=== PATIENT | male | born 1980 | race Caucasian/White ===

== ENCOUNTER 2023-02-11 15:27 | Inpatient (IN) | payer OTHER ==
[~2023-02-11 15:27] MED LIST: Iopamidol-370 76% 500 ML MDV (1 ML CHARGE) ONE
[2023-02-11] MEDS ORDERED: Ondansetron PF 4 MG/2 ML Vial ONE ×2 (15:51→18:08)
[2023-02-11] MEDS ORDERED: Piperacillin/Tazobactam 3.375 GM VIAL ONE (16:21)
[2023-02-11 16:24] LABS: #Basophils 0.1 thou/uL (0.0-0.2); #Eosinphils 0.2 thou/uL (0.0-0.7); #Lymphocytes 2.6 thou/uL (1.20-3.40); #Monocytes 1.6 thou/uL (0.11-0.59); #Neutrophils 13.6 thou/uL (1.40-6.50); %Basophils 0.5 % (0.0-1.0); %Eosinophils 1.1 % (0.0-10.0); %Lymphocytes 14.2 % (21.0-51.0); %Monocytes 8.9 % (0.0-10.0); %Neutrophils 75.3 % (42.0-75.0); Mean Corpuscular HGB CONC 32.7 g/dL (32.0-36.0); Mean Corpuscular Hemoglobin 29.5 pg (27.0-31.0); Platelet Count 712 10x3/uL (130-400); RBC Distribution Width 11.7 % (11.5-14.5); Red Blood Cell (RBC) Count 5.44 mill/uL (4.70-6.10)
[2023-02-11 16:48] LABS: ALT (SGPT) 25 U/L (8-55); AST (SGOT) 21 U/L (5-34); Albumin 3.7 g/dL (3.5-5.0); Alkaline Phosphatase 90 U/L (40-110); Anion Gap 22 mmol/L (10-20); BUN (Urea Nitrogen) 17 mg/dL (8.9-20.6); Calc. Creatinine Clearance 0 mL/min (70-130); Calcium 10.2 mg/dL (7.8-10.44); Carbon Dioxide 34 mmol/L (22-29); Chloride 82 mmol/L (98-107); Estimated GFR 77; Globulin 4.3 g/dL (2.4-3.5); Glucose 135 mg/dL (70-105); Lipase 35 U/L (8-78); Sodium 135 mmol/L (136-145)
[2023-02-11 16:49] LABS: Acetaminophen Less than 10.0 mcg/mL (10.0-30.0); Alcohol Less than 10 mg/dL (Less than 10); CK (CPK) 30 U/L (30-200); Salicylate Less than 8.0 mg/dL (15.0-30.0)
[2023-02-11] MEDS ORDERED: Benzocaine 20% Spray 60 ML CAN ONE (17:37)
[2023-02-11 18:33] LABS: Bilirubin Negative (Negative); Blood, Urine Negative (Negative); Glucose, Urine (Dipstick) Normal (Negative); Ketone, Urine 10 mg/dL (Negative); Leukocyte Negative Leu/uL (Negative); Nitrite Negative (Negative); Protein, Urine (Dipstick) 10 mg/dL (Neg-Trace); Specific Gravity, Urine 1.013 (1.002-1.036); Urobilinogen Normal mg/dL (Less than 2)
[2023-02-11 18:34] LABS: Clarity Hazy (Clear)
[2023-02-11 18:48] LABS: Amphetamine Not Detected (NotDetected); Barbiturates Screen Not Detected (NotDetected); Benzodiazepine Screen Not Detected (NotDetected); Cocaine Metabolite Screen Not Detected (NotDetected); Methadone Not Detected (NotDetected); Methamphetamine Not Detected (NotDetected); Opiate Screen Not Detected (NotDetected); Oxycodone Screen Not Detected (NotDetected); Phencyclidine (PCP) Not Detected (NotDetected); THC/Cannabinoid Screen Detected (NotDetected); Tricyclic Screen Detected (NotDetected)
[2023-02-11] MEDS ORDERED: Ondansetron PF 4 MG/2 ML Vial IVP PRN (19:29)
[2023-02-11] MEDS ORDERED: HYDROcodone/Acetaminophen 5/325 mg Tablet PO PRN (19:29)
[2023-02-11] MEDS ORDERED: Acetaminophen 325 MG TAB PO PRN (19:29)
[2023-02-11 19:34] LABS: Lactic Acid 1.4 mmol/L (0.5-2.2)
[2023-02-11] MEDS ORDERED: fentaNYL 50 mcg/mL 1 mL Vial ONE (20:10)
[2023-02-11] MEDS: Piperacillin/Tazobactam 3.375 GM in Sodium Chloride 0.9% 100 ML IVPB SCH (21:42)
[2023-02-11] MEDS: Famotidine/PF 20 mg/2ml Vial SLOW IVP SCH (21:42)
[2023-02-11] MEDS: Sodium Chloride 0.9% 1,000 ML IV SCH (21:43)
[2023-02-11] MEDS: Amitriptyline HCl 25 MG TAB PO SCH (21:51)
[2023-02-11 22:25] VITALS: BMI 22.6
[2023-02-12] MEDS: Sodium Chloride 0.9% 1,000 ML IV SCH ×3 (03:53→18:12)
[2023-02-12] MEDS: Piperacillin/Tazobactam 3.375 GM in Sodium Chloride 0.9% 100 ML IVPB SCH ×3 (03:53→22:45)
[2023-02-12 06:45] LABS: #Eosinphils 0.4 thou/uL (0.0-0.7); #Lymphocytes 2.4 thou/uL (1.20-3.40); #Monocytes 1.3 thou/uL (0.11-0.59); #Neutrophils 9.5 thou/uL (1.40-6.50); %Basophils 0.3 % (0.0-1.0); %Eosinophils 3.2 % (0.0-10.0); %Lymphocytes 17.8 % (21.0-51.0); %Monocytes 9.1 % (0.0-10.0); %Neutrophils 69.6 % (42.0-75.0); Hemoglobin 14.1 g/dL (14.0-18.0); Mean Corpuscular HGB CONC 32.6 g/dL (32.0-36.0); Mean Corpuscular Hemoglobin 29.7 pg (27.0-31.0); Mean Corpuscular Volume 91.1 fl (78.0-98.0); Mean Platelet Volume 6.9 fL (7.4-10.4); Platelet Count 625 10x3/uL (130-400); RBC Distribution Width 11.6 % (11.5-14.5); Red Blood Cell (RBC) Count 4.74 mill/uL (4.70-6.10); White Blood Cell (WBC) Count 13.7 10x3/uL (4.8-10.8)
[2023-02-12 07:02] LABS: Anion Gap 13 mmol/L (10-20); BUN (Urea Nitrogen) 15 mg/dL (8.9-20.6); Calc. Creatinine Clearance 94 mL/min (70-130); Calcium 9.1 mg/dL (7.8-10.44); Carbon Dioxide 34 mmol/L (22-29); Chloride 92 mmol/L (98-107); Estimated GFR 93; Glucose 103 mg/dL (70-105); Sodium 136 mmol/L (136-145)
[2023-02-12] MEDS: Famotidine/PF 20 mg/2ml Vial SLOW IVP SCH ×2 (08:43→22:45)
[2023-02-12] MEDS ORDERED: Potassium Chloride 40 MEQ, Magnesium Sulfate 2 GM in Sodium Chloride 0.9% 250 ML 250 ML IVPB SCH (09:00)
[2023-02-12 09:48] LABS: Phosphorus 3.6 mg/dL (2.3-4.7)
[2023-02-12 09:49] LABS: Magnesium 2.3 mg/dL (1.6-2.6)
[2023-02-12] MEDS ORDERED: traMADol HCl 50 MG TAB PO PRN (14:17)
[2023-02-12] MEDS ORDERED: Morphine 2 MG/ML VIAL SLOW IVP PRN (14:18)
[2023-02-12 16:16] LABS: Anion Gap 14 mmol/L (10-20); BUN (Urea Nitrogen) 15 mg/dL (8.9-20.6); Calc. Creatinine Clearance 88 mL/min (70-130); Carbon Dioxide 27 mmol/L (22-29); Chloride 98 mmol/L (98-107); Estimated GFR 86; Glucose 105 mg/dL (70-105); Potassium 4.2 mmol/L (3.5-5.1); Sodium 135 mmol/L (136-145)
[2023-02-12] MEDS ORDERED: traMADol HCl 50 MG TAB PO SCH (18:00)
[2023-02-12] MEDS: Amitriptyline HCl 25 MG TAB PO SCH (22:45)
[2023-02-13] MEDS: Piperacillin/Tazobactam 3.375 GM in Sodium Chloride 0.9% 100 ML IVPB SCH ×3 (04:36→21:30)
[2023-02-13] MEDS: Sodium Chloride 0.9% 1,000 ML IV SCH ×3 (04:37→21:39)
[2023-02-13 05:51] LABS: #Basophils 0.1 thou/uL (0.0-0.2); #Eosinphils 0.2 thou/uL (0.0-0.7); #Lymphocytes 2.1 thou/uL (1.20-3.40); #Monocytes 1.2 thou/uL (0.11-0.59); #Neutrophils 10.1 thou/uL (1.40-6.50); %Basophils 0.6 % (0.0-1.0); %Eosinophils 1.6 % (0.0-10.0); %Lymphocytes 15.4 % (21.0-51.0); %Monocytes 8.7 % (0.0-10.0); %Neutrophils 73.6 % (42.0-75.0); Hemoglobin 12.6 g/dL (14.0-18.0); Mean Corpuscular HGB CONC 33.8 g/dL (32.0-36.0); Mean Corpuscular Hemoglobin 30.7 pg (27.0-31.0); Mean Corpuscular Volume 90.8 fl (78.0-98.0); Mean Platelet Volume 6.6 fL (7.4-10.4); Platelet Count 566 10x3/uL (130-400); RBC Distribution Width 11.6 % (11.5-14.5); Red Blood Cell (RBC) Count 4.11 mill/uL (4.70-6.10); White Blood Cell (WBC) Count 13.7 10x3/uL (4.8-10.8)
[2023-02-13 06:13] LABS: Anion Gap 10 mmol/L (10-20); BUN (Urea Nitrogen) 14 mg/dL (8.9-20.6); Calc. Creatinine Clearance 112 mL/min (70-130); Calcium 8.1 mg/dL (7.8-10.44); Carbon Dioxide 25 mmol/L (22-29); Chloride 105 mmol/L (98-107); Estimated GFR 110; Glucose 85 mg/dL (70-105); Potassium 3.3 mmol/L (3.5-5.1); Sodium 137 mmol/L (136-145)
[2023-02-13] MEDS: Famotidine/PF 20 mg/2ml Vial SLOW IVP SCH ×2 (08:42→21:31)
[2023-02-13] MEDS: Potassium Chloride 20 MEQ in Premix Bag 1 BAG IVPB SCH ×4 (08:42→17:25)
[2023-02-13] MEDS ORDERED: MD-Gastroview 120 ML BOT ONE (14:41)
[2023-02-13 18:20] LABS: Anion Gap 16 mmol/L (10-20); BUN (Urea Nitrogen) 14 mg/dL (8.9-20.6); Calc. Creatinine Clearance 103 mL/min (70-130); Calcium 8.9 mg/dL (7.8-10.44); Carbon Dioxide 24 mmol/L (22-29); Chloride 109 mmol/L (98-107); Estimated GFR 104; Glucose 118 mg/dL (70-105); Potassium 4.1 mmol/L (3.5-5.1); Sodium 145 mmol/L (136-145)
[2023-02-13] MEDS: Amitriptyline HCl 25 MG TAB PO SCH (21:32)
[2023-02-14] MEDS: Piperacillin/Tazobactam 3.375 GM in Sodium Chloride 0.9% 100 ML IVPB SCH ×2 (03:31→17:05)
[2023-02-14] MEDS: Sodium Chloride 0.9% 1,000 ML IV SCH (03:32)
[2023-02-14 07:38] LABS: #Eosinphils 0.2 thou/uL (0.0-0.7); #Monocytes 1.1 thou/uL (0.11-0.59); #Neutrophils 11.6 thou/uL (1.40-6.50); %Basophils 0.3 % (0.0-1.0); %Eosinophils 1.1 % (0.0-10.0); %Lymphocytes 13.3 % (21.0-51.0); %Monocytes 7.2 % (0.0-10.0); %Neutrophils 78.1 % (42.0-75.0); Hemoglobin 12.1 g/dL (14.0-18.0); Mean Corpuscular HGB CONC 32.9 g/dL (32.0-36.0); Mean Corpuscular Hemoglobin 30.1 pg (27.0-31.0); Mean Corpuscular Volume 91.3 fl (78.0-98.0); Mean Platelet Volume 6.8 fL (7.4-10.4); Platelet Count 628 10x3/uL (130-400); RBC Distribution Width 11.6 % (11.5-14.5); Red Blood Cell (RBC) Count 4.01 mill/uL (4.70-6.10); White Blood Cell (WBC) Count 14.9 10x3/uL (4.8-10.8)
[2023-02-14 07:51] LABS: Anion Gap 11 mmol/L (10-20); BUN (Urea Nitrogen) 7 mg/dL (8.9-20.6); Calc. Creatinine Clearance 123 mL/min (70-130); Carbon Dioxide 23 mmol/L (22-29); Chloride 105 mmol/L (98-107); Estimated GFR 113; Glucose 96 mg/dL (70-105); Magnesium 1.9 mg/dL (1.6-2.6); Phosphorus 1.2 mg/dL (2.3-4.7); Potassium 3.3 mmol/L (3.5-5.1); Sodium 136 mmol/L (136-145)
[2023-02-14] MEDS ORDERED: Magnesium 2 GM/50 ML(in water) 2 GM in Premix Bag 1 BAG IVPB SCH (08:00)
[2023-02-14] MEDS ORDERED: Potassium Phosphate 30 MMOL, Magnesium Sulfate 2 GM in Sodium Chloride 0.9% 250 ML 250 ML IVPB SCH (08:30)
[2023-02-14] MEDS: Famotidine/PF 20 mg/2ml Vial SLOW IVP SCH ×2 (09:42→21:04)
[2023-02-14] MEDS ORDERED: Potassium Chloride 20 MEQ in Premix Bag 1 BAG IVPB SCH (16:00)
[2023-02-14] MEDS: metroNIDAZOLE 500 MG TAB PO SCH ×2 (17:38→21:05)
[2023-02-14] MEDS ORDERED: Potassium Phosphate 30 MMOL in Sodium Chloride 0.9% 250 ML 250 ML IVPB SCH (20:00)
[2023-02-14] MEDS ORDERED: Ciprofloxacin 500 MG TAB PO SCH (20:00)
[2023-02-14] MEDS: Senokot S 8.6-50 MG TAB PO SCH (21:04)
[2023-02-14] MEDS: Amitriptyline HCl 25 MG TAB PO SCH (21:04)
[2023-02-14] MEDS: Cipro 250 MG TAB PO SCH (21:05)
[2023-02-15] MEDS: Cipro 250 MG TAB PO SCH (05:29)
[2023-02-15 06:31] LABS: #Eosinphils 0.1 thou/uL (0.0-0.7); #Lymphocytes 1.6 thou/uL (1.20-3.40); #Monocytes 0.9 thou/uL (0.11-0.59); #Neutrophils 8.7 thou/uL (1.40-6.50); %Basophils 0.3 % (0.0-1.0); %Eosinophils 1.2 % (0.0-10.0); %Lymphocytes 14.4 % (21.0-51.0); %Monocytes 7.6 % (0.0-10.0); %Neutrophils 76.5 % (42.0-75.0); Hemoglobin 11.9 g/dL (14.0-18.0); Mean Corpuscular HGB CONC 34.2 g/dL (32.0-36.0); Mean Corpuscular Hemoglobin 31.1 pg (27.0-31.0); Mean Corpuscular Volume 90.8 fl (78.0-98.0); Mean Platelet Volume 6.8 fL (7.4-10.4); Platelet Count 561 10x3/uL (130-400); RBC Distribution Width 11.7 % (11.5-14.5); Red Blood Cell (RBC) Count 3.84 mill/uL (4.70-6.10); White Blood Cell (WBC) Count 11.3 10x3/uL (4.8-10.8)
[2023-02-15 06:54] LABS: Anion Gap 13 mmol/L (10-20); BUN (Urea Nitrogen) Less than 4 mg/dL (8.9-20.6); Calc. Creatinine Clearance 143 mL/min (70-130); Calcium 7.9 mg/dL (7.8-10.44); Carbon Dioxide 21 mmol/L (22-29); Chloride 107 mmol/L (98-107); Estimated GFR 118; Glucose 107 mg/dL (70-105); Phosphorus 2.2 mg/dL (2.3-4.7); Potassium 3.7 mmol/L (3.5-5.1); Sodium 137 mmol/L (136-145)
[2023-02-15 07:56] VITALS: TEMP 98.5
[2023-02-15] MEDS ORDERED: Polyethylene Glycol 3350 17 GM Packet PO SCH (09:00)
[2023-02-15] MEDS: metroNIDAZOLE 500 MG TAB PO SCH (09:59)
[2023-02-15] MEDS: Famotidine/PF 20 mg/2ml Vial SLOW IVP SCH (09:59)
[2023-02-15] MEDS: Senokot S 8.6-50 MG TAB PO SCH (10:03)
[2023-02-15] MEDS ORDERED: Potassium Phosphate 30 MMOL in Sodium Chloride 0.9% 250 ML 250 ML IVPB SCH (11:30)
[2023-02-15 12:12] VITALS: BP 134/87
[2023-02-16] MEDS ORDERED: Saccharomyces boulardii 250 MG CAP PO SCH (09:00)
== END 2023-02-15 14:28 | disposition home or self-care (01) | DRG 863 ==
LOC: ERS 15:27 → SURG A 18:52
PROVIDERS: ADMIT Surgery; ATTEND Surgery
DX: T81.43XA Infection following a procedure, organ and space surgical site, initial encounter (principal); K91.31 Postprocedural partial intestinal obstruction; E87.20 Acidosis, unspecified; K56.7 Ileus, unspecified; E87.6 Hypokalemia; E86.0 Dehydration; E83.39 Other disorders of phosphorus metabolism; E83.42 Hypomagnesemia; F41.9 Anxiety disorder, unspecified; F32.A Depression, unspecified; Z79.899 Other long term (current) drug therapy; Z90.49 Acquired absence of other specified parts of digestive tract
CPT/HCPCS: 36415; 71045; 71275; 74018; 74177; 74250; 80048; 80053; 80306; 80307; 81003; 82550; 83605; 83690; 83735; 84100; 84443; 84484; 85025; 87040; 87086; 93005; 96361; 96365; 96375; 96376; J2405; J2543; J3010; J3475; J3480; J3490; J7050; Q9963; Q9967; S0028

== ENCOUNTER 2023-03-17 06:52 | Outpatient (CLI) | payer OTHER ==
[2023-03-17] MEDS ORDERED: Iopamidol 370 76% 100 ML VIAL ONE (10:02)
== END 2023-03-17 06:53 | disposition home or self-care (01) ==
LOC: CT 06:52
PROVIDERS: ATTEND Surgery
DX: T81.49XA Infection following a procedure, other surgical site, initial encounter (principal)
CPT/HCPCS: 74177; Q9967